=== PATIENT | female | born 1995 | race American Indian/Alaskan Native ===

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

== ENCOUNTER 2017-05-13 23:16 | Inpatient (IN) | payer MEDICAID ==
[2017-05-14] MEDS ORDERED: BRETHINE SUB-Q PRN (00:35)
[2017-05-14] MEDS ORDERED: NARCAN 0.4 MG/1 ML IV PRN ×2 (00:35→22:51)
[2017-05-14] MEDS ORDERED: ePHEDrine SULFATE IV PRN (00:35)
[2017-05-14] MEDS ORDERED: XYLOCAINE 2% INFILTRATI ONE (00:35)
[2017-05-14] MEDS ORDERED: BRETHINE IVP PRN (00:35)
[2017-05-14] MEDS ORDERED: MINERAL OIL PO PRN (00:35)
[2017-05-14] MEDS ORDERED: STADOL IV PRN (00:35)
[2017-05-14] MEDS ORDERED: ZOFRAN IV PRN ×2 (00:35→21:40)
[2017-05-14] MEDS ORDERED: CERVIDIL VG ONE (00:35)
[2017-05-14] MEDS ORDERED: PITOCin/NS 20 UNIT/1000ML DRIP 20 UNITS/1,000 ML BAG IV SCH ×3 (01:00→22:51)
[2017-05-14 01:09] LABS: Hematocrit 33.9 % (30.3-42.9); Hemoglobin 11.3 gm/dl (10.1-14.3); Mean Corpuscular HGB Conc 33 % (30-34); Mean Corpuscular Hemoglobin 31 pg (28-32); Mean Corpuscular Volume 92 fl (79-97); Platelet Count 286 K/mm3 (140-440); Red Blood Count 3.69 M/mm3 (3.65-5.03); Red Cell Distribution Width 13.1 % (13.2-15.2); White Blood Count 9.5 K/mm3 (4.5-11.0)
[2017-05-14] MEDS: LACTATED RINGERS 1,000 ML IV SCH ×3 (04:17→18:31)
[2017-05-14] MEDS ORDERED: PITOCin/NS 30 UNIT/500ML 30 UNITS/500 ML BAG IV SCH (07:00)
--- NOTE | 2017-05-14 08:08 | History and Physical Report ---
History of Present Illness Date of examination: 05/14/17 Date of admission: 05/13/17 23:16 History of present illness: 22 yo first trimester ultrasound EDC 05/20/17 @ 39.1 weeks gestation presented last night for induction of labor secondary to IUGR. First trimester entry into care at 8 weeks gestation. 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 She also reports a history of depression with admission to [place] 02/2017. She is GBS negative. 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 Family/Genetic History: none Social history: no significant social history - Obstetrical History Expected Date of Delivery: 05/20/17 Actual Gestation: 39 Week(s) 1 Day(s) : 3 Para: 0 Hx # Term Pregnancies: 0 Number of Pregnancies: 0 Spontaneous Abortions: 1 Induced : 1 Number of Living Children: 0 Medications and Allergies Allergies Allergy/AdvReac Type Severity Reaction Status Date / Time No Known Allergies Allergy Verified 05/14/17 00:47 Home Medications Medication Instructions Recorded Confirmed Last Taken Type No Known Home Medications [No 05/14/17 05/14/17 Unknown History Reported Home Medications] Active Meds: Active Medications Butorphanol Tartrate (Stadol) 2 mg IV Q2H PRN PRN Reason: Pain , Severe (7-10) Ephedrine Sulfate (Ephedrine Sulfate) 10 mg IV Q2M PRN PRN Reason: Hypotension Fentanyl (Sublimaze) 100 mcg IV Q2H PRN PRN Reason: Labor Pain Lactated Ringer's (Lactated Ringers) 1,000 mls @ 125 mls/hr IV DIRECT CK Last Admin: 05/14/17 04:17 Dose: 125 mls/hr Oxytocin/Sodium Chloride (Pitocin/Ns 20 Unit/1000ml Drip) 20 units in 1,000 mls @ 125 mls/hr IV DIRECT CK Oxytocin/Sodium Chloride (Pitocin/Ns 30 Unit/500ml) 30 units in 500 mls @ 4 mls /hr IV TITR CK PRN Reason: Protocol Mineral Oil (Mineral Oil) 30 ml PO QHS PRN PRN Reason: Constipation Naloxone HCl (Narcan 0.4 Mg/1 Ml) 0.1 mg IV Q2MIN PRN PRN Reason: Res Rate </= 8 or 02 SAT < 92% Ondansetron HCl (Zofran) 4 mg IV Q8H PRN PRN Reason: Nausea And Vomiting Terbutaline Sulfate (Brethine) 0.25 mg SUB-Q ONCE PRN PRN Reason: Hyperstimulation/Hypertonicity Terbutaline Sulfate (Brethine) 0.25 mg IVP ONCE PRN PRN Reason: Hyperstimulation/Hypertonicity Review of Systems All systems: negative Genitourinary: no genital sores, no contractions - Vital Signs Vital signs: Vital Signs Pulse Pulse Ox 86 97 05/14/17 01:31 05/14/17 01:31 Temp Pulse Resp BP Pulse Ox 98.2 F 76 18 115/65 96 05/14/17 04:03 05/14/17 07:59 05/14/17 04:03 05/14/17 07:31 05/14/17 07:59 - Physical Exam Abdomen: Positive: normal appearance, soft - Obstetrical FHR: category 1 Uterine Contraction Monitor Mode: External Uterine Contraction Pattern: Regular Uterine Tone Measurement Phase: Resting Uterine Contraction Intensity: Mild Results Result Diagrams: 05/14/17 00:53 Abnormal lab results 05/14/17 Range/Units 00:53 RDW 13.1 L (13.2-15.2) % All other labs normal. Assessment and Plan A: IUP at 39 weeks Induction of labor secondary to IUGR Unfavorable Cervix P: Cervidil placed at 0100 Pitocin after Cervidil Monitor Closely
[2017-05-14] MEDS: SUBLIMAZE IV PRN ×3 (10:53→19:21)
[2017-05-14] MEDS ORDERED: REGLAN IV ONE (19:33)
[2017-05-14] MEDS ORDERED: BICITRA PO ONE (19:33)
[2017-05-14] MEDS ORDERED: PEPCID IV ONE ×2 (19:33→19:39)
[2017-05-14] MEDS ORDERED: BICITRA ONE (19:38)
[2017-05-14] MEDS ORDERED: REGLAN ONE (19:38)
[2017-05-14] MEDS ORDERED: ANCEF/STERILE WATER 2 GM/20 ML 2 GM/20 ML SYRINGE IV ONE (19:39)
[2017-05-14] MEDS ORDERED: LACTATED RINGERS 1,000 ML IV SCH (20:00)
[2017-05-14] MEDS ORDERED: ANCEF/STERILE WATER 2 GM/20 ML 2 GM/20 ML SYRINGE IV NR (20:00)
[2017-05-14] MEDS ORDERED: ANCEF/STERILE WATER 2 GM/20 ML IV ONE (20:06)
[2017-05-14] MEDS ORDERED: TORADOL ONE (20:10)
[2017-05-14] MEDS ORDERED: WATER FOR IRRIG STERILE IR ONE (20:10)
[2017-05-14] MEDS ORDERED: NACL 0.9% IR ONE (20:10)
[2017-05-14] MEDS ORDERED: MORPHINE ONE (20:11)
[2017-05-14] MEDS ORDERED: ePHEDrine SULFATE ONE (20:26)
[2017-05-14] MEDS ORDERED: ZOFRAN ONE (21:24)
--- NOTE | 2017-05-14 21:40 | Event Note ---
Date: 05/14/17 Late entry. FHTs notable for repetitive late decelerations with recovery to baseline remote from delivery. Decision made to proceed with primary section.
[2017-05-14] MEDS ORDERED: PERCOCET 5/325 PO PRN ×2 (21:42→22:51)
[2017-05-14] MEDS ORDERED: TORADOL IV PRN ×2 (21:42→22:51)
[2017-05-14] MEDS ORDERED: DILAUDID IV PRN (21:42)
--- NOTE | 2017-05-14 21:42 | Procedure Note ---
OB Delivery Note - Delivery Date of Delivery: 05/14/17 Surgeon: JACKIE BHATIA Estimated blood loss: other (800 mL) - Section Preop diagnosis: nonreassuring FHR tracing Postop diagnosis: same section procedure: section, primary low transverse Disposition: PACU Complications: none Narrative: Please see operative report. - A at 1 minute: 7 at 5 minutes: 8 Gender: Male (3085g (6lb 13 oz) @ 2040 pm)
--- NOTE | 2017-05-14 21:43 | Operative Report ---
Operative Report Operative Report: Date of procedure: May 14, 2017 Preoperative diagnosis: 1) IUP at 39w1d 2) Non-reassuring status 3) IUGR Postoperative diagnosis: Same Procedure: Primary low transverse section Surgeon: Priya Burrell M.D. Anesthesia: Spinal Findings: 1) Viable male , Apgars 7 and 8, weight 3085 g, (6 lb 13 oz). Nuchal cord 2 2) Normal-appearing uterus ovaries and tubes Estimated blood loss: 800 mL IV fluids: 1200 mL Urine output: 100 mL, clear at the end of the procedure Drains: [place] to gravity Specimens: Placentas to pathology Complications: None. Counts correct 3 Disposition: Stable to PACU Indication for procedure: Patient is a 22-year-old -[place] female at 39 weeks 1 day who was initially admitted for induction secondary to IUGR. During her induction she progressed to 2 cm and began to have repetitive late decelerations. The decision was made to proceed with delivery Operation in detail: After the risks, benefits, alternatives and complications were explained to the patient she gave informed consent for the procedure. She was subsequently taken to the operating room where spinal anesthesia was noted to be adequate. She was subsequently placed in the dorsal supine position with leftward tilt and prepped and draped in a normal sterile fashion. heart tones were noted to be in the 113 s prior to incision. A timeout was performed. A Pfannenstiel skin incision was made with the knife and carried down to the layer of the fascia with the Bovie. The fascia was incised in the midline and the fascial incision was extended bilaterally with the Bovie. Attention was then turned to the superior aspect of the incision which was grasped with two Kochers, tented up, and dissected off the rectus muscles. Attention was then turned to the inferior aspect of the incision which was grasped with two Kochers , tented up and dissected off the rectus muscles. The rectus muscles were then in the midline. The peritoneum was then entered bluntly. The peritoneal incision was extended with good visualization of the bladder. The peritoneal incision was then stretched. An Yon self-retaining retractor was placed for visualization. The bladder blade was placed. The vesicouterine peritoneum was grasped with smooth pickups and incised with Metzenbaum scissors. Metzenbaum scissors were used to extend the incision bilaterally. The bladder flap was then created digitally and the bladder blade was replaced. A transverse incision was made in the lower uterine segment with a knife and extended bilaterally with the bandage scissors. The head was delivered without difficulty followed by shoulders and body. was bulb suctioned at delivery. The cord was clamped and cut and the was handed to NICU staff in attendance. Cord blood was collected. The placenta was then delivered manually. The uterus was then exteriorized and cleared of all clots and debris. The hysterotomy was then reapproximated with 0 Vicryl in a running locked fashion. A second layer of the same suture was used in imbricating fashion. The hysterotomy was inspected and hemostasis was noted. The Yon self-retaining retractor was removed. The gutters were irrigated and cleared of all clots and debris. The hysterotomy was again inspected and noted to be hemostatic. Surgicel was placed over the hysterotomy. The peritoneum and rectus muscles were then reapproximated with 2-0 Vicryl in a running fashion. The fascia was reapproximated with 0 Vicryl in a running fashion. The subcutaneous tissue was reapproximated with 3-0 Vicryl in a running fashion. The skin was reapproximated with 4-0 Vicryl in a subcuticular fashion. The incision was then covered with steri strips and a pressure dressing. The procedure was then ended. The patient tolerated the procedure well and was taken to the PACU in stable condition. All instrument, lap, and needle counts were correct 3.
--- NOTE | 2017-05-14 21:46 | Post Anesthesia Evaluation ---
- Post Anesthesia Evaluation Patient Participated: Yes Airway Patent: Yes Stable Respiratory Function: Yes Nausea/Vomiting: No Temp > 96.8F: Yes Pain Manageable: Yes Adequeate Hydration: Yes Anesthesia Complications: No Block Receding Appropriately: Yes Patient on Ventilator: No
--- NOTE | 2017-05-14 21:46 | Anesthesia Consultation ---
Anesthesia Consult and Med Hx Date of service: 05/14/17 - Airway Anesthetic Teeth Evaluation: Good ROM Head & Neck: Adequate Mental/Hyoid Distance: Adequate Mallampati Class: Class II Intubation Access Assessment: Probably Good - Pulmonary Exam CTA: Yes - Cardiac Exam Cardiac Exam: RRR - Pre-Operative Health Status ASA Pre-Surgery Classification: ASA2 Proposed Anesthetic Plan: Spinal - Pulmonary Hx Asthma: No COPD: No Hx Pneumonia: No - Cardiovascular System Hx Hypertension: No - Central Nervous System Hx Seizures: No Hx Psychiatric Problems: No - Endocrine Hx Renal Disease: No Hx End Stage Renal Disease: No Hx Hypothyroidism: No Hx Hyperthyroidism: No - Hematic Hx Anemia: No Hx Sickle Cell Disease: No - Other Systems Hx Alcohol Use: No
[2017-05-14] MEDS: BENADRYL IV PRN (21:51)
[2017-05-14] MEDS ORDERED: NEO SYNEPHRINE/NS Syringe(OR USE) IV ONE (22:00)
[2017-05-14] MEDS ORDERED: SODIUM CHLORIDE FLUSH SYRINGE 10 ML IV NR ×2 (22:00→22:51)
[2017-05-14] MEDS ORDERED: MYLICON PO PRN (22:51)
[2017-05-14] MEDS ORDERED: ANCEF/NS 1 GM/50 ML 1 GM/50 ML BAG IV SCH (22:51)
[2017-05-14] MEDS ORDERED: D5LR 1,000 ML IV SCH (22:51)
[2017-05-14] MEDS ORDERED: PHENERGAN PR PRN (22:51)
[2017-05-14] MEDS ORDERED: MORPHINE IV PRN ×2 (22:51)
[2017-05-14] MEDS ORDERED: MILK OF MAGNESIA PO PRN (22:51)
[2017-05-14] MEDS ORDERED: TYLENOL PO PRN (22:51)
[2017-05-14] MEDS ORDERED: TUCKS PAD TP PRN (22:51)
[2017-05-14] MEDS: FEOSOL PO SCH (23:41)
[2017-05-15] MEDS: BENADRYL IV PRN ×3 (02:30→19:44)
[2017-05-15] MEDS: ceFAZolin 1 GM in NACL 0.9% 20 ML IV SCH ×2 (04:37→13:29)
[2017-05-15] MEDS ORDERED: M-M-R II VACCINE SUB-Q ONE (06:00)
[2017-05-15] MEDS ORDERED: BOOSTRIX IM ONE (06:00)
[2017-05-15] MEDS ORDERED: PRENATAL VITAMIN PO SCH (10:00)
--- NOTE | 2017-05-15 10:40 | Progress Note ---
Assessment and Plan O: VSS AF PP H/H: pending A: Stable POD #1 Generalized Purititis P: binder Benadryl po Bedbath D/C Howell Ambulate Subjective - Subjective Date of service: 05/15/17 Interval history: 22 yo first trimester ultrasound EDC 05/20/17 @ 39.1 weeks gestation presented last night for induction of labor secondary to IUGR. First trimester entry into care at 8 weeks gestation. 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 She also reports a history of depression with admission to [place] 02/2017. She is GBS negative. Patient reports: appetite normal, pain well controlled, flatus, ambulating normally, other (c/o general purititis, benadryl ineffective), no voiding normally (howell present and patent) [place]: nursing well Objective - Vital Signs Latest vital signs: Vital Signs Temp Pulse Resp BP BP Pulse Ox 05/14/17 23:43 106 H 115/77 98 05/14/17 22:30 108/71 96 05/14/17 22:27 110/77 96 05/14/17 22:20 85 20 110/77 97 05/14/17 22:15 73 15 114/70 97 05/14/17 22:10 71 24 118/68 97 05/14/17 22:05 91 H 27 H 118/81 98 05/14/17 22:00 82 13 117/72 98 05/14/17 21:55 85 12 120/61 97 05/14/17 21:50 74 12 107/67 97 05/14/17 21:45 75 14 109/63 97 05/14/17 21:40 76 14 107/64 97 05/14/17 21:35 93 H 13 105/63 05/14/17 21:34 97 05/14/17 19:45 81 99 05/14/17 19:40 75 98 05/14/17 19:35 81 98 05/14/17 19:30 84 96 05/14/17 19:26 91 H 94 05/14/17 19:25 77 98 05/14/17 19:16 74 123/84 05/14/17 19:14 98.2 F 74 123/84 Intake and Output 05/14/17 05/15/17 05/15/17 22:59 06:59 14:59 Intake Total 2614.583 Output Total 180 50 Balance 2434.583 -50 Intake: IV 2614.583 Lactated Ringers 1,000 ml 914.583 @ 125 mls/hr IV DIRECT CK Rx#:[id number] Output: Urine 180 Uretheral (Howell) 40 Emesis 50 Other: Total, Output Amount 50 - Exam Breasts: Present: deferred Lungs: Present: Normal air movement Abdomen: Present: normal appearance, soft. Absent: distention Vulva: both: normal Uterus: Present: normal, firm, fundal height below umbilicus (2 below U, ML). Absent: bogginess, tenderness Extremities: Present: normal Incision: Present: normal, dry, intact, dressed
--- NOTE | 2017-05-15 11:00 | Progress Note ---
Subjective Date of service: 05/15/17 Interval history: 1st POD after Patient is in the bed, comfortable. Pain is well controlled with pain meds. Ambulated well. No residual neurological deficit. No anesthesia complications. Objective - Constitutional Vitals: Vital Signs - 12hr 05/14/17 23:43 Pulse Rate 106 H Blood Pressure 115/77 O2 Sat by Pulse 98 Oximetry - Labs CBC & Chem 7: 05/14/17 00:53
[2017-05-15] MEDS ORDERED: BANOPHEN ANTI-ITCH TP PRN (12:00)
[2017-05-15 14:50] LABS: Hematocrit 33.2 % (30.3-42.9); Hemoglobin 11.2 gm/dl (10.1-14.3)
[2017-05-15] MEDS: MOTRIN PO PRN ×2 (16:26→21:44)
[2017-05-15] MEDS: FEOSOL PO SCH (21:44)
[2017-05-16] MEDS: MOTRIN PO PRN ×2 (04:36→13:09)
[2017-05-16] MEDS ORDERED: BOOSTRIX IM ONE (06:00)
--- NOTE | 2017-05-16 08:27 | Progress Note ---
Assessment and Plan A/P PPD#2 s/p Primary csec doing well ambulating without difficulty h/h stable male unsure of circumcision breast feeding d/c home today f/u in 2 weeks for incision check Subjective - Subjective Date of service: 05/16/17 Principal diagnosis: primary csec Patient reports: appetite normal, voiding normally, pain well controlled, flatus , ambulating normally : doing well, nursing well Objective - Vital Signs Latest vital signs: Vital Signs Temp Pulse Resp BP BP Pulse Ox 05/16/17 01:56 98.6 F 75 17 91/47 97 05/15/17 17:04 98.7 F 79 18 109/65 96 05/15/17 09:20 98.0 F 75 20 128/82 100 Intake and Output 05/15/17 05/16/17 05/16/17 23:59 07:59 15:59 Output Total 500 Balance -500 Output: Urine 500 Indwelling Catheter 500 Other: Total, Output Amount 500 - Exam Breasts: Present: normal Cardiovascular: Present: Regular rate, Normal S1 Lungs: Present: Clear to auscultation, Normal air movement Abdomen: Present: normal appearance, soft, normal bowel sounds. Absent: distention, tenderness, guarding Vulva: both: normal Uterus: Present: normal, firm, fundal height below umbilicus. Absent: bogginess , tenderness Extremities: Present: normal Deep Tendon Reflex Grade: Normal +2 Incision: Present: normal, dry, intact
--- NOTE | 2017-05-16 08:30 | Discharge Summary ---
Providers - Providers Date of Admission: 05/13/17 23:16 Date of discharge: 05/16/17 Attending physician: JACKIE BHATIA 05/14/17 22:51 Consult to Spud Grader [CONS] Routine Reason For Exam: Primary care physician: JACKIE BHATIA Hospitalization Reason for admission: induction of labor Delivery: Procedure: section, primary low transverse Episiotomy: none Laceration: none Incision: normal, dry, intact Other procedures: none complications: none baby: male Condition at discharge: Good Disposition: DC-01 TO HOME OR SELFCARE Plan - Discharge Medications Prescriptions: Ferrous Sulfate [Feosol 325 MG tab] 325 mg PO BID #30 tablet Ibuprofen [Motrin] 600 mg PO Q8H PRN #30 tablet PRN Reason: Pain oxyCODONE /ACETAMINOPHEN [Percocet 5/325] 1 tab PO Q6HR PRN #30 tablet PRN Reason: Pain - Provider Discharge Summary Activity: routine, no sex for 6 weeks, no strenuous exercise Diet: routine Instructions: routine Additional instructions: [] Smoking cessation referral if applicable(refer to patient education folder for contact #) [] Refer to [facility] Booklet Call your doctor immediately for: * Fever > 100.5 * Heavy vaginal bleeding ( >1 pad per hour) * Severe persistent headache * Shortness of breath * Reddened, hot, painful area to leg or breast * Drainage or odor from incision. * Keep incision clean and dry at all times and follow doctor's instructions regarding bathing/showering - Follow up plan Follow up: JACKIE BHATIA MD [Primary Care Provider] - 14 Days
[2017-05-16 10:00] VITALS: BP 105/51
[2017-05-16] MEDS: FEOSOL PO SCH (13:08)
== END 2017-05-16 17:19 | disposition home or self-care (01) | DRG 765 ==
LOC: LD 23:16 → APU 05-14 20:38 → OB 05-14 22:41
PROVIDERS: ADMIT Obstetrics & Gynecology; ATTEND Obstetrics & Gynecology
PROC: 10D00Z1 Extraction of Products of Conception, Low, Open Approach (ICD-10-PCS; principal; 2017-05-14)
PROC: 3E0234Z Introduction of Serum, Toxoid and Vaccine into Muscle, Percutaneous Approach (ICD-10-PCS; 2017-05-15)
DX: O76 Abnormality in fetal heart rate and rhythm complicating labor and delivery (principal); O36.5930 Maternal care for other known or suspected poor fetal growth, third trimester, not applicable or unspecified; O75.0 Maternal distress during labor and delivery; Z3A.39 39 weeks gestation of pregnancy; Z37.0 Single live birth; O99.344 Other mental disorders complicating childbirth; F32.9 Major depressive disorder, single episode, unspecified; Z23 Encounter for immunization
CPT/HCPCS: 36415; 59200; 85014; 85018; 85027; 86592; 86850; 86900; 86901; 88307; 90471; 90715; 99211; G0463; J0690; J1200; J1885; J2270; J2370; J2405; J2590; J2765; J3010; J7120; J7121